=== PATIENT | male | born 1945 | race Caucasian/White ===

== ENCOUNTER → 2024-01-13 07:48 | Outpatient (REF) | payer OTHER, SELFPAY ==
[2024-01-13 11:05] LABS: Glycohemoglobin (HgbA1c) 6.4 % (4.0-5.6)
[2024-01-13 12:36] LABS: ALT (SGPT) 44 U/L (0-50); AST (SGOT) 46 U/L (17-59); Albumin 4.2 g/dl (3.5-5.0); Alkaline Phosphatase 66 U/L (38-126); Blood Urea Nitrogen 20 mg/dl (9-20); Calcium 9.1 mg/dl (8.4-10.2); Carbon Dioxide 26 mmol/L (22-30); Chloride 104 mmol/L (98-107); Glucose 107 mg/dl (70-99); HDL Cholesterol 37 mg/dl; LDL Cholesterol, Calculated 47 mg/dl; Potassium 4.1 mmol/L (3.5-5.1); Sodium 138 mmol/L (135-145); Total Bilirubin 0.6 mg/dl (0.2-1.3); Total Cholesterol 108 mg/dl (50-199); Total Protein 7.1 g/dl (6.3-8.2); Triglyceride 121 mg/dl (10-149); Very Low Density Lipoprotein 24 mg/dl (0-30); eGFR > 60.00
== END ==
LOC: HWLAB 07:48
PROVIDERS: ATTENDING PHYSICIAN Internal Medicine Cardiovascular Disease; FAMILY PHYSICIAN Internal Medicine Geriatric Medicine
DX: I10 Essential (primary) hypertension (principal); R73.9 Hyperglycemia, unspecified; E78.5 Hyperlipidemia, unspecified
CPT/HCPCS: 36415; 80053; 80061; 83036

== ENCOUNTER → 2024-04-06 11:06 | Outpatient (REF) | payer OTHER, SELFPAY ==
[2024-04-06 16:28] LABS: Urine Albumin Negative (Neg - Trace); Urine Bilirubin Negative (Negative); Urine Character Clear (Clear); Urine Color Yellow; Urine Glucose Negative (Negative); Urine Ketone Negative (Negative); Urine Leukocyte Negative (Negative); Urine Nitrite Negative (Negative); Urine Occult Blood Negative (Negative); Urine Specific Gravity 1.015 (<1.030); Urine Urobilinogen Negative (Neg - 1+)
[2024-04-06 16:48] LABS: Vitamin D, 25-OH*** 57.2 ng/mL (30-80)
[2024-04-06 17:02] LABS: PSA, Total - Screen 3.65 ng/ml (0.0-4.0)
== END ==
LOC: HWLAB 11:06
PROVIDERS: ATTENDING PHYSICIAN Internal Medicine Geriatric Medicine
DX: Z00.00 Encounter for general adult medical examination without abnormal findings (principal); E78.5 Hyperlipidemia, unspecified; I10 Essential (primary) hypertension; I25.10 Atherosclerotic heart disease of native coronary artery without angina pectoris; I11.9 Hypertensive heart disease without heart failure; E11.9 Type 2 diabetes mellitus without complications; G47.33 Obstructive sleep apnea (adult) (pediatric); E66.09 Other obesity due to excess calories; E55.9 Vitamin D deficiency, unspecified; Z13.89 Encounter for screening for other disorder; Z12.5 Encounter for screening for malignant neoplasm of prostate
CPT/HCPCS: 36415; 81003; 82306; G0103

== ENCOUNTER → 2024-07-06 08:03 | Outpatient (REF) | payer OTHER, SELFPAY ==
[2024-07-08 04:53] LABS: PSA Total 0.8 ng/mL (0.0-4.0)
== END ==
LOC: HWLAB 08:03
PROVIDERS: ATTENDING PHYSICIAN Internal Medicine Geriatric Medicine
DX: R97.20 Elevated prostate specific antigen [PSA] (principal); R89.9 Unspecified abnormal finding in specimens from other organs, systems and tissues
CPT/HCPCS: 36415; 84153; 84154

== ENCOUNTER → 2024-11-17 06:56 | Outpatient (REF) | payer OTHER, SELFPAY | LOC: HWRAD 06:56 | PROVIDERS: ATTENDING PHYSICIAN Nurse Practitioner Family | DX: M79.672 Pain in left foot (principal) | CPT/HCPCS: 73600; 73630 ==

== ENCOUNTER → 2025-01-05 06:49 | Outpatient (REF) | payer OTHER, SELFPAY ==
[2025-01-05 10:54] LABS: Glycohemoglobin (HgbA1c) 5.9 % (4.0-5.6)
[2025-01-05 11:05] LABS: ALT (SGPT) 42 U/L (0-50); AST (SGOT) 30 U/L (17-59); Albumin 3.9 g/dl (3.5-5.0); Alkaline Phosphatase 56 U/L (38-126); Blood Urea Nitrogen 16 mg/dl (9-20); Calcium 9.3 mg/dl (8.4-10.2); Carbon Dioxide 28 mmol/L (22-30); Chloride 107 mmol/L (98-107); Glucose 108 mg/dl (70-99); HDL Cholesterol 35 mg/dl; LDL Cholesterol, Calculated 70 mg/dl; Potassium 4.2 mmol/L (3.5-5.1); Sodium 144 mmol/L (135-145); Total Bilirubin 0.5 mg/dl (0.2-1.3); Total Cholesterol 125 mg/dl (50-199); Total Protein 6.8 g/dl (6.3-8.2); Triglyceride 102 mg/dl (10-149); Very Low Density Lipoprotein 20 mg/dl (0-30); eGFR > 60.00
== END ==
LOC: HWLAB 06:49
PROVIDERS: ATTENDING PHYSICIAN Internal Medicine Cardiovascular Disease; FAMILY PHYSICIAN Internal Medicine Geriatric Medicine
DX: I10 Essential (primary) hypertension (principal); E78.5 Hyperlipidemia, unspecified
CPT/HCPCS: 36415; 80053; 80061; 83036

== ENCOUNTER → 2025-03-09 06:25 | Outpatient (REF) | payer OTHER, SELFPAY ==
[2025-03-09 13:58] LABS: Microalbumin, Random Urine 2.3 mg/dl (0.6-1.7); Microalbumin/creatinine Ratio 10.8 mg/g
== END ==
LOC: HWLAB 06:25
PROVIDERS: ATTENDING PHYSICIAN Internal Medicine Geriatric Medicine
DX: E11.9 Type 2 diabetes mellitus without complications (principal)
CPT/HCPCS: 36415; 82043; 82570

== ENCOUNTER → 2025-06-21 07:10 | Outpatient (REF) | payer OTHER, SELFPAY ==
[2025-06-21 09:47] LABS: ALT (SGPT) 56 U/L (0-50); AST (SGOT) 37 U/L (17-59); Albumin 4.3 g/dl (3.5-5.0); Alkaline Phosphatase 61 U/L (38-126); Blood Urea Nitrogen 16 mg/dl (9-20); Calcium 9.0 mg/dl (8.4-10.2); Carbon Dioxide 27 mmol/L (22-30); Chloride 104 mmol/L (98-107); Glucose 110 mg/dl (70-99); HDL Cholesterol 37 mg/dl; LDL Cholesterol, Calculated 75 mg/dl; Potassium 4.7 mmol/L (3.5-5.1); Sodium 138 mmol/L (135-145); Total Protein 7.2 g/dl (6.3-8.2); Very Low Density Lipoprotein 28 mg/dl (0-30); eGFR > 60.00
[2025-06-21 10:13] LABS: PSA, Total - Screen 1.28 ng/ml (0.0-4.0)
[2025-06-21 10:53] LABS: Glycohemoglobin (HgbA1c) 6.0 % (4.0-5.6)
== END ==
LOC: HWLAB 07:10
PROVIDERS: ATTENDING PHYSICIAN Internal Medicine Geriatric Medicine; REFERRING PHYSICIAN Internal Medicine Cardiovascular Disease
DX: Z00.00 Encounter for general adult medical examination without abnormal findings (principal); E78.5 Hyperlipidemia, unspecified; I10 Essential (primary) hypertension; E11.9 Type 2 diabetes mellitus without complications; I11.9 Hypertensive heart disease without heart failure; E66.09 Other obesity due to excess calories; G47.33 Obstructive sleep apnea (adult) (pediatric); E55.9 Vitamin D deficiency, unspecified; Z13.89 Encounter for screening for other disorder
CPT/HCPCS: 36415; 80053; 80061; 83036; G0103

== ENCOUNTER → 2025-08-14 06:44 | Outpatient (REF) | payer OTHER, SELFPAY | LOC: HWRAD 06:44 | PROVIDERS: ATTENDING PHYSICIAN Internal Medicine Geriatric Medicine | DX: R74.01 Elevation of levels of liver transaminase levels (principal) | CPT/HCPCS: 76700 ==

== ENCOUNTER → 2025-08-17 07:24 | Outpatient (REF) | payer OTHER, SELFPAY ==
[2025-08-17 08:29] LABS: Hematocrit 45.8 % (39.0-52.0); Hemoglobin 15.4 g/dL (13.0-18.0); Mean Corp Hgb Conc. 33.6 g/dL (33.0-37.0); Mean Corpuscular Volume 92.9 fL (80.0-94.0); Platelet Count 239 10^3/uL (130-400); Red Cell Dist. Width 12.8 % (11.5-14.5)
== END ==
LOC: REG 07:24
PROVIDERS: ATTENDING PHYSICIAN Nurse Practitioner
DX: I25.10 Atherosclerotic heart disease of native coronary artery without angina pectoris (principal); R06.09 Other forms of dyspnea
CPT/HCPCS: 36415; 85027

== ENCOUNTER → 2025-08-30 11:21 | Outpatient (REF) | payer OTHER, SELFPAY | LOC: HWRCS 11:21 | PROVIDERS: ATTENDING PHYSICIAN Nurse Practitioner; FAMILY PHYSICIAN Internal Medicine Geriatric Medicine | DX: I25.10 Atherosclerotic heart disease of native coronary artery without angina pectoris (principal); R06.09 Other forms of dyspnea | CPT/HCPCS: 78452; 93017; 93306; A9500 ==

== ENCOUNTER → 2025-09-05 07:14 | Outpatient (REF) | payer OTHER, SELFPAY ==
[2025-09-05 09:12] LABS: ALT (SGPT) 52 U/L (0-50); AST (SGOT) 36 U/L (17-59); Alkaline Phosphatase 55 U/L (38-126); GGTP 38 U/L (15-73)
== END ==
LOC: REG 07:14
PROVIDERS: ATTENDING PHYSICIAN Internal Medicine Geriatric Medicine
DX: K76.0 Fatty (change of) liver, not elsewhere classified (principal)
CPT/HCPCS: 36415; 82977; 84075; 84450; 84460